=== PATIENT | male | born 1970 | race Caucasian/White ===

== ENCOUNTER 2017-02-16 09:23 | Emergency (ER) | payer OTHER ==
[~2017-02-16] VITALS: Ht 182.9 cm; Wt 93.8 kg
[~2017-02-16 09:23] MED LIST: LAMO200T35 PO; LEVE500T13 PO; LISI-725 PO; TOPI200T6 PO
[2017-02-16 09:24] VITALS: TEMP 37; Ht 182.9 cm; Wt 93.8 kg
[2017-02-16 11:00] LABS: BASO % 0.3 %; BASO ABS # 0.02 K/uL (0-0.2); COMPLETE YES; EOS % 1.8 %; HEMATOCRIT 49.4 % (42-52); IG% 0.6 %; LYMPH ABS # 1.31 K/uL (1.2-3.4); MEAN CELL VOLUME 94.6 fL (80-100); MEAN CORPUSCULAR HEMOGLOBIN 32.4 pg (25-34); MEAN CORPUSCULAR HGB CONC 34.2 g/dl (32-36); MEAN PLATELET VOLUME 9.3 fL (7.4-10.4); MONO % 7.7 %; NEUT % 68.6 %; PLATELET COUNT 221 K/uL (130-400); RED BLOOD COUNT 5.22 M/uL (4.7-6.1); WHITE BLOOD COUNT 6.25 K/uL (4.8-10.8)
[2017-02-16 11:17] LABS: ALT/SGPT 51 U/L (12-78); AST/SGOT 25 U/L (15-37); BLOOD UREA NITROGEN 19 mg/dl (7-18); BUN/CREATININE RATIO 13.4 (10-20); CALCIUM 9.2 mg/dl (8.5-10.1); CARBON DIOXIDE 25 mmol/L (21-32); CHLORIDE 105 mmol/L (98-107); CREATININE 1.38 mg/dl (0.60-1.40); GLUCOSE 94 mg/dl (70-99); MAGNESIUM 2.7 mg/dl (1.8-2.4); POTASSIUM 4.5 mmol/L (3.5-5.1); SODIUM 137 mmol/L (136-145)
--- NOTE | 2017-02-16 11:25 | EMERGENCY ROOM VISIT NOTE ---
History Report prepared by Avel: Ilana Rodriguez Under the Supervision of: Dr. Emily Petty D.O. First contact with patient: 10:30 Chief Complaint: NEURO SYMPTOMS Stated Complaint: LOSS OF SHORT TERM MEMORY,EEG DONE Nursing Triage Summary: pt reports having difficulty remembering things started 13 days ago. denies any visual problems , n/v/headaches, History of Present Illness The patient is a 46 year old male who presents to the Emergency Room with complaints of periodic short term memory loss for one week [employer]. He notes that he cannot remember timing and sequence of events that recently took place. He notes some of the events that took place he cannot remember at all. He notes that he has had seizures several years ago, for which he currently takes seizure medications. States seizures began after [employer] medic brain injury. No family history seizures. He notes that he cannot remember the types of seizures, though he thinks they were "staring seizures." He notes mild claustrophobia. He notes that he has never had memory loss issues in the past. He notes he had an EEG done 7 days ago that was an hour and 15 minutes long, though they have not been given the results. He notes he was given an EKG this morning [employer]. He does not currently see a neurologist. He regularly drinks three beers most nights. He denies any recreational drug use. He denies any recent seizures, headaches, visual changes, changes to diet, trauma, car accident, falls, travels, illness, coughs, cold, fevers, chills, numbness, tingling, weakness, or trouble ambulating. Review of EEG from February 10, 2017 shows left frontotemporal slowing, no recorded epileptiform activity. 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 He notes that he cannot remember timing and sequence of events that recently took place. He denies any recent seizures, changes to diet, visual changes, trauma, car accident, falls, travels, illness, cold, tingling, or trouble ambulating. Review of Systems See HPI for pertinent positives & negatives. A total of 10 systems reviewed and were otherwise negative. Past Medical & Surgical Medical Problems: (1) Asthma (2) History of seizures (3) HTN (hypertension) Surgical Problems: (1) History of brain surgery Family History Heart disease Hypertension Kidney disease Social History Smoking Status: Current Every Day Smoker Alcohol Use: occasionally (3 beers nightly) Drug Use: none Marital Status: single Housing Status: lives alone Occupation Status: employed Current/Historical Medications Scheduled Lamotrigine (Lamictal), 200 MG PO BID Lisinopril (Zestril), 20 MG PO DAILY Topiramate (Topamax), 200 MG PO BID Allergies Coded Allergies: Diphenhydramine (Unverified Allergy, Unknown, ., 02/16/17) Vancomycin (Verified Allergy, Unknown, Unknown, 02/16/17) Penicillins (Unverified Adverse Reaction, Unknown, ., 02/16/17) Physical Exam Vital Signs Date Time Temp Pulse Resp B/P (MAP) Pulse Ox O2 Delivery O2 Flow Rate FiO2 02/16/17 15:55 75 15 107/64 97 Room Air 02/16/17 13:58 78 21 111/70 97 Room Air 02/16/17 13:35 80 02/16/17 12:36 74 18 115/72 98 Room Air 02/16/17 11:25 75 19 146/93 98 Room Air 02/16/17 09:44 79 18 141/84 98 Room Air 02/16/17 09:43 83 02/16/17 09:24 37.0 81 18 153/89 99 Room Air Physical Exam GENERAL: alert, well appearing, well nourished, no distress, non-toxic EYE EXAM: normal conjunctiva, PERRL and EOM's grossly intact OROPHARYNX: no exudate, no erythema, lips, buccal mucosa, and tongue normal and mucous membranes are moist NECK: supple, no nuchal rigidity, no adenopathy, non-tender LUNGS: Clear to auscultation. Normal chest wall mechanics HEART: no murmurs, S1 normal and S2 normal ABDOMEN: abdomen soft, non-tender, normo-active bowel sounds, no masses, no rebound or guarding. BACK: Back is symmetrical on inspection and there is no deformity, no midline tenderness, no CVA tenderness. SKIN: no rashes and no bruising UPPER EXTREMITIES: upper extremities are grossly normal. LOWER EXTREMITIES: No pitting edema. NEURO EXAM: Normal sensorium, cranial nerves II-XII grossly intact, normal speech, no gross weakness of arms, no gross weakness of legs. No drift. Finger to nose intact. Gross sensation intact. Medical Decision & Procedures ER Provider Diagnostic Interpretation: Radiology results have been interpreted by the radiologist and reviewed by me. BRAIN COMBO FOR SEIZURE CLINICAL HISTORY: memory loss mental status change COMPARISON STUDY: CT brain for 2011 TECHNIQUE: Utilizing a 1.5 Sara magnet and dedicated coil, multiplanar, multiecho imaging of the brain was performed pre and postcontrast administration. IV administration of 8.5 mL of Gadavist contrast was uneventful. Thin cut coronal T2 imaging was performed according to seizure protocol. FINDINGS: Diffusion-weighted images are negative for an acute ischemic event. There are abnormal cystic changes versus arachnoid cyst left temporal fossa. There is a history of prior surgical intervention. Mild atrophy over the cerebral convexities. Minimal chronic small vessel change. Postcontrast images show no significant enhancing lesion. Ventricular system is midline. IMPRESSION: 1. Left temporal arachnoid cyst versus postoperative encephalomalacia left temporal fossa region. 2. Mild atrophy over the cerebral convexities. 3. No acute process is appreciated. 4. No abnormal postcontrast enhancement. The above report was generated using voice recognition software. It may contain grammatical, syntax or spelling errors. Electronically signed by: Isaiah Mauricio M.D. 02/16/2017 1:32 PM Dictated Date/Time: 02/16/2017 1:24 PM Laboratory Results 02/16/17 10:35 Red Blood Count 5.22, Mean Corpuscular Volume 94.6, Mean Corpuscular Hemoglobin 32.4, Mean Corpuscular Hemoglobin Concent 34.2, Mean Platelet Volume 9.3, Neutrophils (%) (Auto) 68.6, Lymphocytes (%) (Auto) 21.0, Monocytes (%) (Auto) 7.7, Eosinophils (%) (Auto) 1.8, Basophils (%) (Auto) 0.3, Neutrophils # (Auto) 4.29, Lymphocytes # (Auto) 1.31, Monocytes # (Auto) 0.48, Eosinophils # (Auto) 0.11, Basophils # (Auto) 0.02 02/16/17 10:35 Test 02/16/17 10:35 02/16/17 11:03 02/16/17 12:20 02/16/17 15:31 White Blood Count 6.25 K/uL (4.8-10.8) Red Blood Count 5.22 M/uL (4.7-6.1) Hemoglobin 16.9 g/dL (14.0-18.0) Hematocrit 49.4 % (42-52) Mean Corpuscular Volume 94.6 fL (80-100) Mean Corpuscular Hemoglobin 32.4 pg (25-34) Mean Corpuscular Hemoglobin Concent 34.2 g/dl (32-36) Platelet Count 221 K/uL (130-400) Mean Platelet Volume 9.3 fL (7.4-10.4) Neutrophils (%) (Auto) 68.6 % Lymphocytes (%) (Auto) 21.0 % Monocytes (%) (Auto) 7.7 % Eosinophils (%) (Auto) 1.8 % Basophils (%) (Auto) 0.3 % Neutrophils # (Auto) 4.29 K/uL (1.4-6.5) Lymphocytes # (Auto) 1.31 K/uL (1.2-3.4) Monocytes # (Auto) 0.48 K/uL (0.11-0.59) Eosinophils # (Auto) 0.11 K/uL (0-0.5) Basophils # (Auto) 0.02 K/uL (0-0.2) RDW Standard Deviation 46.7 fL (36.4-46.3) RDW Coefficient of Variation 13.5 % (11.5-14.5) Immature Granulocyte % (Auto) 0.6 % Immature Granulocyte # (Auto) 0.04 K/uL (0.00-0.02) Anion Gap 7.0 mmol/L (3-11) Est Creatinine Clear Calc Drug Dose 80.4 ml/min Estimated GFR () 71.1 Estimated GFR (Non- 61.3 BUN/Creatinine Ratio 13.4 (10-20) Calcium Level 9.2 mg/dl (8.5-10.1) Phosphorus Level 2.0 mg/dl (2.5-4.9) Magnesium Level 2.7 mg/dl (1.8-2.4) Total Bilirubin 0.5 mg/dl (0.2-1) Aspartate Amino Transf (AST/SGOT) 25 U/L (15-37) Alanine Aminotransferase (ALT/SGPT) 51 U/L (12-78) Alkaline Phosphatase 71 U/L (45-117) Troponin I < 0.015 ng/ml (0-0.045) Total Protein 8.5 gm/dl (6.4-8.2) Albumin 4.2 gm/dl (3.4-5.0) Globulin 4.2 gm/dl (2.5-4.0) Albumin/Globulin Ratio 1.0 (0.9-2) Thyroid Stimulating Hormone (TSH) 2.360 uIu/ml (0.300-4.500) Salicylates Level < 1.7 mg/dl (2.8-20) Acetaminophen Level < 2 ug/ml (10-30) Ethyl Alcohol mg/dL < 3.0 mg/dl (0-3) Urine Opiates Screen NEG (NEG) Urine Methadone, Qualitative NEG (NEG) Urine Barbiturates NEG (NEG) Urine Phencyclidine (PCP) Level NEG (NEG) Ur Amphetamine/Methamphetamine NEG (NEG) MDMA (Ecstasy) Screen NEG (NEG) Urine Benzodiazepines Screen NEG (NEG) Urine Cocaine Metabolite NEG (NEG) Urine Marijuana (THC) NEG (NEG) Laboratory results per my review. Medications Administered Medications (Trade) Dose Ordered Sig/Yandy Route Start Time Stop Time Status Last Admin Dose Admin Lorazepam (Ativan Inj) 2 mg NOW STAT IV 02/16/17 11:31 02/16/17 11:32 DC 02/16/17 12:35 2 MG ECG Indication: other (short term memory loss) Rate (beats per minute): 80 Rhythm: sinus rhythm Findings: no acute ischemic change, no ectopy, other (Normal axis. Normal intervals.) ED Course 1032: The patient was evaluated in room C4. A complete history and physical exam was performed. 1131: Ordered Ativan 2 mg IV 1209: I reassessed the patient at this time. He is resting comfortably. 1422: I reassessed the patient at this time. He is resting comfortably. 1444: I spoke with Dr. Andino, neurologist. We discussed the patients case. He will follow up with the patient. 1451: I reassessed the patient at this time. He is feeling better and resting comfortably. I discussed the results and treatment plan with the patient. I answered all pertaining questions that he had. He expressed understanding and verbalized agreement. The patient will be discharged home. Medical Decision The patient is a 46 year old male who presents to the ED with complaints of short-term memory loss. Differential diagnosis include: seizures, TIA, CVA, encephalitis, MS, electrolyte abnormalities, heave metal intoxication, and medication ADR Discussed all results with patient as well as conversation with neurology. Patient advised not drive until otherwise followed up by neurology. Level send the patient's current medications and he will follow-up with his family doctor within contact neurology regarding the levels to see if medication changes can be made even prior to seeing neurology as an outpatient. Discussion with neurology it seems that a variant or atypical seizure is most likely diagnosis at the time as there is no other evidence of infection, inflammation, or structural abnormality on labs and imaging. Patient well-appearing here throughout, no obvious seizure-like activity, vital signs stable. Discussed with patient all results, avoidance of recreational drugs and alcohol, symptoms to watch and return for, need for close follow-up with family doctor as well as neurology, he verbalized understanding was agreeable with plan. [employer] form for the patient's license was filled out. Medication Reconcilliation Current Medication List: was personally reviewed by me Blood Pressure Screening Patient's blood pressure: Normal blood pressure Consults Time Called: 1434 Consulting Physician: Dr. Andino, neurologist Returned Call: [address] Andino, neurologist. We discussed the patients case. He will follow up with the patient. Impression Primary Impression: Short-term memory loss Additional Impression: History of seizures Scribe Attestation The scribe's documentation has been prepared under my direction and personally reviewed by me in its entirety. I confirm that the note above accurately reflects all work, treatment, procedures, and medical decision making performed by me. Departure Information Dispostion Home / Self-Care Referrals Sam Palmer M.D. (PCP) Forms HOME CARE DOCUMENTATION FORM, IMPORTANT VISIT INFORMATION, WORK / SCHOOL INSTRUCTIONS Patient Instructions My [facility], Seizures - [facility] Additional Instructions Please call Dr. Young's office 7-10 days to follow-up the results of the levels of your seizure medications. He can then contact Dr. Andino regarding these levels prior to your appointment. Please call Dr. Andino's office to see if your name can be added to the cancellation list. If you have any persistent or worsening symptoms, begin to develop atypical or prolonged seizures, develop fevers, headaches, vision changes, dizziness, or you've any other new concerns, please return to the emergency room. Problem Qualifiers
[2017-02-16 11:27] LABS: ACETAMINOPHEN < 2 ug/ml (10-30); ALKALINE PHOSPHATASE 71 U/L (45-117)
[2017-02-16] MEDS ORDERED: LORAZEPAM 2 MG/ML 1 ML VIAL IV STA (11:31)
[2017-02-16 13:30] LABS: BENZODIAZEPINE, URINE NEG (NEG); COCAINE,URINE NEG (NEG); PHENCYCLIDINE, URINE NEG (NEG)
--- NOTE | 2017-02-16 13:33 | DIAGNOSTIC IMAGING REPORT ---
BRAIN COMBO FOR SEIZURE CLINICAL HISTORY: memory loss mental status change COMPARISON STUDY: CT brain for 2011 TECHNIQUE: Utilizing a 1.5 Sara magnet and dedicated coil, multiplanar, multiecho imaging of the brain was performed pre and postcontrast administration. IV administration of 8.5 mL of Gadavist contrast was uneventful. Thin cut coronal T2 imaging was performed according to seizure protocol. FINDINGS: Diffusion-weighted images are negative for an acute ischemic event. There are abnormal cystic changes versus arachnoid cyst left temporal fossa. There is a history of prior surgical intervention. Mild atrophy over the cerebral convexities. Minimal chronic small vessel change. Postcontrast images show no significant enhancing lesion. Ventricular system is midline. IMPRESSION: 1. Left temporal arachnoid cyst versus postoperative encephalomalacia left temporal fossa region. 2. Mild atrophy over the cerebral convexities. 3. No acute process is appreciated. 4. No abnormal postcontrast enhancement. The above report was generated using voice recognition software. It may contain grammatical, syntax or spelling errors. Electronically signed by: Isaiah Mauricio M.D. 02/16/2017 1:32 PM Dictated Date/Time: 02/16/2017 1:24 PM
[2017-02-16 15:55] VITALS: BP 107/64; PULSE 75; O2SAT 97
== END 2017-02-16 16:03 | disposition home or self-care (01) ==
LOC: C.EDB 09:24 → C.EDC 16:03
DX: R41.3 Other amnesia (principal); G40.909 Epilepsy, unspecified, not intractable, without status epilepticus; J45.909 Unspecified asthma, uncomplicated; I10 Essential (primary) hypertension; F17.200 Nicotine dependence, unspecified, uncomplicated; Z82.49 Family history of ischemic heart disease and other diseases of the circulatory system